=== PATIENT | male | born 1980 | race Caucasian/White ===

== ENCOUNTER 2021-08-16 05:58 | Emergency (ER) | payer OTHER, SELFPAY ==
--- NOTE | ~2021-08-16 | XR_ITS ---
EXAMINATION: XR hip LT 2V w AP pelvis DATE: 08/16/2021 06:55 INDICATION: Left thigh injury. TECHNIQUE: An anteroposterior view of the pelvis and 2 views of left hip were obtained. COMPARISON: None. FINDINGS: Bone alignment is normal. No fracture. The hip joint spaces are normal. There is a nail in the medial left thigh soft tissues. IMPRESSION: 1. Nail in the medial left thigh soft tissues. Reviewed, dictated and finalized at location A.
[2021-08-16 06:03] VITALS: BP 118/80; PULSE 67; RESP 18; TEMP 36.7; O2SAT 100
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
[2021-08-16 06:36] LABS: Basophils Absolute Auto 0.1 K/mm3 (0.0-0.1); Basophils Percent Auto 1.1 % (0.2-1.2); Eosinophils Absolute Auto 0.1 K/mm3 (0-0.3); Eosinophils Percent Auto 1.2 % (0-4.4); Hematocrit 42.8 % (42.0-52.0); Hemoglobin 15.3 g/dL (14.0-18.0); Immature Granulocyte Absolute 0.01 K/mm3 (0.00-0.031); Immature Granulocyte Percent A 0.2 % (0-0.5); Lymphocytes Absolute Auto 2.47 K/mm3 (0.9-3.2); Lymphocytes Percent Auto 37.2 % (18.3-44.2); Mean Corpuscular HGB Conc 35.7 g/dl (32-36); Mean Corpuscular Hemoglobin 30.9 pg (26-34); Mean Corpuscular Volume 86.5 fl (80-100); Mean Platelet Volume 9.2 fl (7.4-10.4); Monocytes Absolute Auto 0.7 K/mm3 (0.1-0.6); Neutrophils Absolute Auto 3.3 K/mm3 (1.3-6.7); Neutrophils Percent Auto 49.3 % (45.5-73.1); Platelet Count Result 247 k/mm3 (150-375); Red Blood Count 4.95 M/mm3 (4.6-6.20); Red Cell Distribution Width 11.9 % (11.5-14.5); White Blood Count 6.6 K/mm3 (4.5-10.0)
[2021-08-16 06:48] LABS: Alanine Aminotransferase 28 U/L (6-50); Albumin Level 4.7 g/dL (3.5-5.1); Alkaline Phosphatase 82 U/L (38-126); Anion Gap 7 mmol/L (8-16); Aspartate Amino Transferase 28 U/L (17-59); Bilirubin,Total 0.6 mg/dL (0.2-1.3); Blood Urea Nitrogen 20 mg/dL (9-20); Calcium 8.9 mg/dL (8.4-10.2); Carbon Dioxide 25 mmol/L (22-30); Chloride 104 mmol/L (98-107); Estimated CRCL calculation 105 ml/min; Estimated Glomerular Filt Rate > 60; Glucose 143 mg/dL (65-110); Potassium 3.8 mmol/L (3.4-5.0); Sodium 136 mmol/L (137-145)
[2021-08-16 06:49] LABS: INR 1.1; Prothrombin Time 13.3 Seconds (11.1-14.7)
[2021-08-16 06:50] LABS: Partial Thromboplastin Time 26.3 SECONDS (22.3-36.8)
[2021-08-16 07:00] VITALS: PULSE 74; RESP 19; O2SAT 100
--- NOTE | 2021-08-16 07:11 | PC.NURSE ---
This nurse gave report to Blaise LEVINE at [facility] ED for pt transfer.
[2021-08-16 07:15] VITALS: PULSE 68; RESP 17; O2SAT 98
[2021-08-16 07:30] VITALS: PULSE 68; RESP 12; O2SAT 99
[2021-08-16 07:45] VITALS: PULSE 77; RESP 16; O2SAT 97
[2021-08-16 08:00] VITALS: BP 119/73; PULSE 75; RESP 19; O2SAT 100
== END 2021-08-16 08:01 | disposition short-term general hospital (02) ==
PROVIDERS: Emergency Provider Emergency Medicine; PCP Internal Medicine
DX: S71.142A Puncture wound with foreign body, left thigh, initial encounter (principal); W29.4XXA Contact with nail gun, initial encounter
CPT/HCPCS: 36415; 73502; 80053; 85025; 85610; 85730; 99285